=== PATIENT | male | born 1980 | race Two or more races ===

== ENCOUNTER 2025-05-26 21:54 | Emergency (ER) | payer OTHER, MEDICAID ==
[~2025-05-26] VITALS: Ht 167.6 cm; Wt 115.9 kg
[2025-05-26 21:58] VITALS: BP 159/69; PULSE 108; RESP 18; TEMP 99.7; O2SAT 93
[2025-05-26] MEDS ORDERED: KETOROLAC TROMETH 60MG/2ML VIAL IM ONE (23:00)
[2025-05-26] MEDS ORDERED: HYDROcodone-ACET 10/325MG TAB PO ONE (23:00)
[2025-05-26] MEDS ORDERED: IBUP-1455 PO (23:08)
--- NOTE | 2025-05-26 23:08 | ED.PDOC ---
Musculoskeletal HPI Comments This patient is a morbidly obese 45-year-old male who arrives the ED today for evaluation of anterior left shoulder pain for the past few days. Patient states he was caring a large pain container several days ago when the injury occurred. Patient states he has been to urgent care and had x-rays performed. Those were negative for any fracture. Patient states he has a ball on the anterior aspect of the shoulder with a in the soft tissue. Patient denies any fever nausea or vomiting. No blood loss. Vital signs were stable. Chief Complaint: Upper Extremity Time Seen by MD: 21:56 Reviewed Notes: Nurses Notes Home Meds Active Scripts Ibuprofen Micronized (Ibuprofen) 800 Mg Tab, 800 MG PO Q8HP PRN, #20 TAB Prov:NANI DURHAM Ricardo PAC 05/26/25 Information Source: Patient, Friend Mode of Arrival: Ambulatory Location: Left Extremity Location: Shoulder Timing: Days Prehospital treatment: None Severity: Moderate Able to Move Extremity: No Bear Weight: Fully Pain: Moderate Hand Dominance: Right Mechanism: Unknown Circumstances: Accident Onset of Symptoms: After Trauma Symptoms: Swelling, Pain DVT Risk Factors: NONE Past Medical History PAST MEDICAL HISTORY: Denies Surgical History: Denies all surgeries Family History Family History: Reviewed,noncontributory to illness, No family hx of Cancer, No family hx of DM, No family hx of Heart annelise, No family hx of HTN, No family hx ofKidney annelise, No family hx of Liver annelise, No family hx of Lung annelise, No family hx of Stroke Social History Smoker: Non-Smoker Alcohol: Denies ETOH Use Drugs: Denies Drug Use Lives In: Home Constitutional: denies: chills, diaphoresis, fatigue, fever, malaise, sweats, weakness, others EENTM: denies: blurred vision, double vision, ear bleeding, ear discharge, ear drainage, ear pain, ear ringing, eye pain, eye redness, hearing loss, mouth pain, mouth swelling, nasal discharge, nose bleeding, nose congestion, nose pain, photophobia, tearing, throat pain, throat swelling, voice changes, others Respiratory: denies: cough, hemoptysis, orthopnea, SOB at rest, shortness of breath, SOB with excertion, stridor, wheezing, others Cardiovascular: denies: chest pain, dizzy spells, diaphoresis, Dyspnea on exe rtion, edema, irregular heart beat, left arm pain, lightheadedness, palpitations, PND, syncope, others Gastrointestinal: denies: abdomen distended, abdominal pain, blood streaked bowels, constipated, diarrhea, dysphagia, difficulty swallowing, hematemesis, melena, nausea, poor appetite, poor fluid intake, rectal bleeding, rectal pain, vomiting, others Genitourinary: denies: burning, dysuria, flank pain, frequency, hematuria, incontinence, penile discharge, penile sore, pain, testicle pain, testicle swelling, urgency, others Neurological: denies: dizziness, fainting, headache, left sided numbness, left sided weakness, numbness, paresthesia, pre-existing deficit, right sided numbness, right sided weakness, seizure, speech problems, tingling, tremors, weakness, others Musculoskeletal: reports: others (Anterior left shoulder pain); denies: back pain, gout, joint pain, joint swelling, muscle pain, muscle stiffness, neck pain Allergic/Immunocompromised: denies: Difficulty Healing, Frequent Infections, Hives, Itching, others Hematologic/Lymphatic: denies: anemia, blood clots, easy bleeding, easy bruising, swollen glands, others Endocrine: denies: excessive hunger, excessive sweating, excessive thirst, excessive urination, flushing, intolerance to cold, intolerance to heat, unexplained weight gain, unexplained weight loss, others Psychiatric: denies: anxiety, bipolar disorder, depression, hopeless, panic disorder, schizophrenia, sleepless, suicidal, others Physical Exam General Appearance: Moderate Distress (Due to left shoulder pain concerns), Obese HEENT: Normal ENT Inspection, Pharynx Normal, TMs Normal Neck: Full Range of Motion, Non-Tender, Normal, Normal Inspection Respiratory: Chest Non-Tender, Lungs Clear, No Accessory Muscle Use, No Respiratory Distress, Normal Breath Sounds Cardiovascular: No Edema, No JVD, No Murmur, No Gallop, Normal Peripheral Pulses, Regular Rate/Rhythm Breast Exam: Deferred Gastrointestinal: No Organomegaly, Non Tender, No Pulsatile Mass, Normal Bowel Sounds, Soft Genitalia: Deferred Pelvic: Deferred Rectal: Deferred Extremities: Other (Anterior aspect of the left shoulder is significantly tender to palpation throughout the bicipital groove region. Small non fluctuant ball is noted with a in the area as well. No ecchymosis appreciated. Reduced range of motion.) Neurologic: Alert Cerebellar Function: NOT DONE Reflexes: NOT DONE Skin: Dry, Normal Color, Warm Lymphatic: No Adenopathy Was a procedure done? Was a procedure done?: No Differential Diagnosis EXT Differential Diagnosis: Other (Muscle strain, muscle tear, rotator cuff injury) X-Ray, Labs, Meds, VS Vital Signs Date Time Temp Pulse Resp B/P (MAP) Pulse Ox O2 Delivery O2 Flow Rate FiO2 05/26/25 21:58 99.7 108 18 159/69 93 99.7 X-Ray, Labs, Meds, VS Comment Spent extensive time discussing the injury with the patient. Advised that with the imaging studies being negative, patient will require an MRI and that needs to be performed in an outpatient setting. Patient has been advised to follow up with the medical to establish a primary care provider for ordering a that is study. Patient will be provided with some pain medication to address his acute pain concerns. Time of 1ST Reevaluation: 23:06 Reevaluation 1ST: Improved Consultation: PCP Patient Education/Counseling: Diagnosis, Treatment Family Education/Counseling: Diagnosis, Treatment Sepsis Recent Procedure: No On Antibiotic Therapy: No Respiratory Rate >20: No Heart Rate >90: No Temp<36 C (96.8 F) or >38.3 C: No SBP <90 or MAP <65 mmHG: No New Acute Mental Status Change: No Is the patient on CPAP, BIPAP,: No IV fluid given: No Departure 1 Departure Time of Disposition: 23:06 Impression: Primary Impression: Shoulder pain, left Disposition: HOME / SELF CARE / HOMELESS Condition: Stable Additional Instructions: Advised pain medication as needed as well as ice therapy. Patient will need to establish a primary care provider for hopeful MRI imaging evaluation and possible orthopedic referral. e-Prescriptions Hydrocodone-Acetaminophen (Hydrocodone Bitartrate/AC 10-325 mg) 1 Tab Tab 1 TAB PO Q8HP PRN, #15 TAB Prov: NANI DURHAM PAC 05/26/25 Ibuprofen Micronized (Ibuprofen) 800 Mg Tab 800 MG PO Q8HP PRN, #20 TAB Prov: NANI DURHAM PAC 05/26/25 Discharged With: Self, Friend Critical Care Note Critical Care Time?: No Stability Stability form required: No Heart Score Heart Score: Heart Score Response (Comments) Value History N/A 0 EKG N/A 0 Age N/A 0 Risk Factors N/A 0 Troponin N/A 0 Total 0 NANI DURHAM [facility] May 26, 2025 23:08
[2025-05-26] MEDS ORDERED: HYDR-4798 PO (23:13)
== END 2025-05-27 02:34 | disposition home or self-care (01) ==
LOC: ER 21:54
DX: M25.512 Pain in left shoulder (principal); E66.01 Morbid (severe) obesity due to excess calories; Z68.41 Body mass index [BMI] 40.0-44.9, adult; Z79.899 Other long term (current) drug therapy